=== PATIENT | male | born 1960 | race Caucasian/White ===

== ENCOUNTER 2018-03-27 16:06 | Outpatient (CLI) ==
[2016-05-04 03:16] VITALS: BMI 25.7
== END 2018-03-27 16:07 | disposition home or self-care (01) ==
LOC: RHC-LAB 16:06
PROVIDERS: ATTEND Emergency Medicine
DX: E78.5 Hyperlipidemia, unspecified (principal); G44.029 Chronic cluster headache, not intractable; Z12.5 Encounter for screening for malignant neoplasm of prostate
CPT/HCPCS: 36415; 80053; 80061; 84443; 85025; 85651

== ENCOUNTER 2018-08-15 11:34 | Emergency (ER) ==
[2018-08-15 11:36] VITALS: BP 144/97; TEMP 97; BMI 26.0
--- NOTE | 2018-08-15 11:57 | ED.PDOC ---
General ED Provider: Dr. JEANNA LEONARDO Chief Complaint: Abdominal Pain Stated Complaint: Rt Lower abdomial pain and rt inguinal pain;States I feel a bulging area above inguinal region.PCP eval in office and referred to ER for evaluation. Time Seen by Physician: 11:45 Mode of Arrival: Walk-In Information Source: Patient Exam Limitations: No limitations Primary Care Provider: HUSEYIN TLYER Referred to ED by: PCP Seen Within Last 72 Hours for Same Complaint By: ED Nursing and Triage Documentation Reviewed and Agree: Yes Does patient meet sepsis criteria?: No System Inflammatory Response Syndrome: Not Applicable Sepsis Protocol: For patient's 13 years and over: Temp is 96.8 and below OR 101 and greater Pulse >90 BPM Resp >20/minute Acutely Altered Mental Status Are patient's symptoms suggestive of a new infection, such as: -Pneumonia -Skin, Soft Tissue -Endocarditis -UTI -Bone, Joint Infection -Implantable Device -Acute Abdominal Infection -Wound Infection -Meningitis -Blood Stream Catheter Infection -Unknown GI Complaint Exam - Abdominal Pain Complaint/Exam Onset: Gradual Duration: 2 days Symptoms Are: Still present Timing: Constant Initial Severity: Moderate Current Severity: Moderate Location of Pain: RLQ Radiates To: Reports: RLQ Character: Reports: Dull, Aching, Cramping Aggravating: Reports: Movement Alleviating: Reports: Rest Associated Signs and Symptoms: Reports: Nausea Related History: Denies: Similar episode AAA Risk Factors: Reports: None Cardiac Risk Factors: Reports: None Testicular Torsion Risk Factors: Reports: None Surgical Obstruction Risk Factors: Reports: None Related Surgical History: Reports: None Abdominal Findings: Present: None Genitalia Exam: Present: Normal findings Differential Diagnoses: Appendicitis, Other (hernia) Review of Systems - Review Of Systems Constitutional: Reports: No symptoms Eyes: Reports: No symptoms Ears, Nose, Mouth, Throat: Reports: No symptoms Respiratory: Reports: No symptoms Cardiac: Reports: No symptoms GI: Reports: Abdominal pain, Nausea : Reports: No symptoms Musculoskeletal: Reports: No symptoms Skin: Reports: No symptoms Neurological: Reports: No symptoms Endocrine: Reports: No symptoms Hematologic/Lymphatic: Reports: No symptoms All Other Systems: Reviewed and Negative Past Medical History - Past Medical History Previously Healthy: Yes Endocrine: Reports: None Cardiovascular: Reports: Hypertension Respiratory: Reports: None Hematological: Reports: None Gastrointestinal: Reports: None Genitourinary: Reports: None Neuro/Psych: Reports: Other (cluster headache) Musculoskeletal: Reports: None Cancer: Reports: None - Surgical History General Surgical History: Reports: Unknown - Family History Family History: Reports: Unknown - Social History Smoking Status: Current every day smoker, Heavy tobacco smoker Hx Substance Use: No Alcohol Screening: None - Immunizations Tetanus Shot up to Date: No Physical Exam - Physical Exam Appearance: Well-appearing, No pain distress, Well-nourished Pain Distress: Mild Eyes: TIMMY, EOMI, Conjunctiva clear ENT: Ears normal, Nose normal, Oropharynx normal Respiratory: Airway patent, Breath sounds clear, Breath sounds equal, Respirations nonlabored Cardiovascular: RRR, Pulses normal, No rub, No murmur GI/: Soft, Nontender, No masses, Bowel sounds normal, No Organomegaly Musculoskeletal: Normal strength, ROM intact, No edema, No calf tenderness Skin: Warm, Dry, Normal color Neurological: Sensation intact, Motor intact, Reflexes intact, Cranial nerves intact, Alert, Oriented Psychiatric: Affect appropriate, Mood appropriate Interpretation - Radiology Interpretation Exam Interpreted: CT Scan Xray Comments: No acute abnormalites. NOdular ground glass in Lt lung base Re-Evaluation - Re-Evaluation Time of Re-Evaluation: 13:00 Status: Improved Vital Signs Stable: Yes Appearance: NAD Lungs: Clear Skin: Warm and Dry Neuro: Alert and Oriented X3 CV: RRR Critical Care Note - Critical Care Note Total Time (mins): 0 Course - Course Hematology/Chemistry: 08/15/18 12:30 08/15/18 12:30 Orders, Labs, Meds: Lab Review 08/15/18 08/15/18 12:30 12:30 WBC 10.67 H RBC 5.05 Hgb 15.5 Hct 46.0 MCV 91.1 MCH 30.7 MCHC 33.7 RDW Coeff of [place] 12.6 Plt Count 243 Immature Gran % (Auto) 1.0 Neut % (Auto) 54.2 Lymph % (Auto) 29.9 [place] % (Auto) 7.9 Eos % (Auto) 5.9 Baso % (Auto) 1.1 Immature Gran # (Auto) 0.1 Neut # (Auto) 5.8 Lymph # (Auto) 3.2 [place] # (Auto) 0.8 Eos # (Auto) 0.6 Baso # (Auto) 0.1 Sodium 141.2 Potassium 4.06 Chloride 105.8 Carbon Dioxide 31.2 H Anion Gap 8.26 BUN 7.7 L Creatinine 0.85 Estimated GFR (MDRD) 93.00 BUN/Creatinine Ratio 9.05 Glucose 87.7 Calcium 9.63 Total Bilirubin 0.33 AST 26.5 ALT 32.6 Alkaline Phosphatase 76.4 Total Protein 6.46 Albumin 3.77 Globulin 2.69 Albumin/Globulin Ratio 1.40 Orders Category Date Time Status CBC W/ AUTO DIFF Stat LAB 08/15/18 12:30 Completed CMP [COMPREHENSIVE METABOLIC PANEL] Stat LAB 08/15/18 12:30 Completed UA [URINALYSIS C & S IF INDICATED] Stat LAB 08/15/18 12:01 Uncollected Ondansetron [Zofran Odt] MEDS 08/15/18 12:03 Discontinued 4 mg PO ONCE STA CT ABDOMEN/PELVIS WO CONTRAST Stat RADS 08/15/18 12:01 Completed Medications Discontinued Medications Generic Name Dose Route Start Last Admin Trade Name Freq PRN Reason Stop Dose Admin Ondansetron HCl 4 mg 08/15/18 12:03 08/15/18 12:21 Zofran Odt PO 08/15/18 12:04 4 mg ONCE STA Administration Vital Signs: Temp Pulse Resp BP Pulse Ox 08/15/18 11:34 97.0 F L 80 18 144/97 H 95 Departure - Departure Time of Disposition: 13:30 Disposition: HOME SELF-CARE Discharge Problem: Abdominal pain, Right nephrolithiasis Instructions: Abdominal Pain (ED), Kidney Stones (ED) Condition: Good Pt referred to PMD for follow-up: Yes IPMP verified?: No Additional Instructions: See PCP in 1 week Make sure follow up CT chest in 3 mo to follow up on lt lung problem Allergies/Adverse Reactions: Allergies codeine Allergy (Severe, Unverified 08/15/18 11:36) chest hurts Narcotic pain meds Adverse Reaction (Uncoded 08/15/18 11:36) PT STATES ALL NARCOTICS GIVE HIM A TIGHTNESS AND PAIN ACROSS THE CHEST, ONLY DEMEROL DOES NOT CAUSE THE PAIN/TIGHTNESS Home Medications: Ambulatory Orders 1 [No Reported Medications] 08/15/18 Disposition Discussed With: Patient
[2018-08-15] MEDS ORDERED: ZOFRAN ODT PO STA (12:03)
--- NOTE | 2018-08-15 12:39 | CT ---
Exam: CT of the abdomen pelvis without intravenous contrast. Comparison: 11/12/2015. Reason for exam: Right lower quadrant abdominal pain. FINDINGS: There is bibasilar atelectasis. Nodular ground-glass is seen in the left anterior lung ba se on axial image number 12 measuring approximately 8 mm. The liver is lower in attenuation in the spleen. The gallbladder has been removed. 3 mm stone is seen in the right renal parenchymal collecting system on axial image number 71 without hydronephrosis or ureterolithiasis. 3 mm stone is seen in the left renal parenchyma, collecting system on axial image number 24 without h ydronephrosis or ureterolithiasis. No focal small bowel dilatation or transition point. The appendix appears unremarkable. The adrenal glands, pancreas, and spleen appear grossly unremarkable within limitations of a noncontr asted study. No intra-abdominal free air or pelvic free fluid. Small only fat containing periumbilical hernia. The bladder appears grossly unremarkable. Moderate amount of retained food products seen within the stomach. No suspicious appearing osteoblastic or osteolytic lesions. Impression: 1. Nodular ground-glass in the left anterior lung base. Recommend 6-month follow-up imaging to docu ment resolution. 2. Hepatic steatosis. 3. No acute inflammatory findings are seen within the abdomen or pelvis. 4. Bilateral nonobstructive nephrolithiasis.
== END 2018-08-15 13:43 | disposition home or self-care (01) ==
LOC: ED 11:34
DX: R10.31 Right lower quadrant pain (principal); N20.0 Calculus of kidney
CPT/HCPCS: 36415; 80053; 81001; 85025; 99283

== ENCOUNTER 2018-08-15 22:24 | Emergency (ER) ==
[2018-08-15 22:32] VITALS: BP 144/94; TEMP 98.6; BMI 26.2
[2018-08-15] MEDS ORDERED: MORPHINE 2 MG/ML SYRINGE IVP STA (22:46)
[2018-08-15] MEDS ORDERED: ZOFRAN 4 MG/2 ML IVP STA (22:46)
[2018-08-15] MEDS ORDERED: SODIUM CHLORIDE 1,000 ML IV STA (22:46)
--- NOTE | 2018-08-16 00:14 | CT ---
Exam: CT of the abdomen and pelvis without and with contrast History: Right lower quadrant pain Technique: 3 mm pre and postcontrast CT of the abdomen and pelvis FINDINGS: Minor lung base atelectasis. No significant liver abnormality. The adrenals, pancreas and spleen are unremarkable. The stomach and hiatus are unremarkable.Prior cholecystectomy. Punctate nono bstructing calculus in both kidneys. Otherwise, kidneys and proximal collecting system are unremarka ble. Atherosclerotic calcification of the aorta without aneurysm or dissection. The appendix is norm al. Bowel loops demonstrate normal caliber. No inflamatory change seen in the mesentery or retroperit oneum. Pelvic genitourinary structures appear normal. Pelvic bowel loops are unremarkable. No inflammatory c hange in the pelvic fat. No acute abnormality of the abdominal or pelvic skeleton. Impression: 1. No inflammatory process, bowel or urinary obstruction is seen. 2. Bilateral nonobstructing nephrolithiasis
--- NOTE | 2018-08-16 00:34 | ED.PDOC ---
General ED Provider: Dr. JEANNA MURPHY-ER Chief Complaint: Kidney Stone Stated Complaint: lico been hurting Time Seen by Physician: 22:30 Mode of Arrival: Walk-In Information Source: Patient Exam Limitations: No limitations Primary Care Provider: BOWEN OCHOA Nursing and Triage Documentation Reviewed and Agree: Yes Does patient meet sepsis criteria?: No System Inflammatory Response Syndrome: Not Applicable Sepsis Protocol: For patient's 13 years and over: Temp is 96.8 and below OR 101 and greater Pulse >90 BPM Resp >20/minute Acutely Altered Mental Status Are patient's symptoms suggestive of a new infection, such as: -Pneumonia -Skin, Soft Tissue -Endocarditis -UTI -Bone, Joint Infection -Implantable Device -Acute Abdominal Infection -Wound Infection -Meningitis -Blood Stream Catheter Infection -Unknown GI Complaint Exam - Abdominal Pain Complaint/Exam Onset: Gradual Duration: several hours Symptoms Are: Still present Timing: Constant Initial Severity: Mild Current Severity: Moderate Location of Pain: Discrete, RLQ Character: Reports: Dull, Aching Aggravating: Reports: None Associated Signs and Symptoms: Denies: Diaphoresis, Fever, Cough, Chest pain, Dizziness, Back pain, Constipation, Blood in stool, Dysuria, Urinary frequency, Decreased urine output, Decreased appetite, Discharge, Nausea, Vomiting, Diarrhea, Decreased activity Review of Systems - Review Of Systems Constitutional: Reports: No symptoms Eyes: Reports: No symptoms Ears, Nose, Mouth, Throat: Reports: No symptoms Respiratory: Reports: No symptoms Cardiac: Reports: No symptoms GI: Reports: Abdominal pain : Reports: No symptoms Musculoskeletal: Reports: Joint pain Skin: Reports: No symptoms Neurological: Reports: No symptoms Endocrine: Reports: No symptoms Hematologic/Lymphatic: Reports: No symptoms All Other Systems: Reviewed and Negative Past Medical History - Past Medical History Previously Healthy: Yes Endocrine: Reports: None Cardiovascular: Reports: Hypertension Respiratory: Reports: None Hematological: Reports: None Gastrointestinal: Reports: None Genitourinary: Reports: None Neuro/Psych: Reports: Other (cluster headache) Musculoskeletal: Reports: None Cancer: Reports: None - Surgical History General Surgical History: Reports: Unknown - Family History Family History: Reports: Unknown - Social History Smoking Status: Current every day smoker, Heavy tobacco smoker Hx Substance Use: No Alcohol Screening: None - Immunizations Tetanus Shot up to Date: Yes Physical Exam - Physical Exam Appearance: Well-appearing, No pain distress, Well-nourished Pain Distress: Mild Eyes: TIMMY, EOMI, Conjunctiva clear ENT: Ears normal, Nose normal, Oropharynx normal Neck: Supple Respiratory: Airway patent, Breath sounds clear, Breath sounds equal, Respirations nonlabored Cardiovascular: RRR, Pulses normal, No rub, No murmur GI/: Soft, Nontender, No masses, Bowel sounds normal, No Organomegaly Musculoskeletal: Normal strength, ROM intact, No edema, No calf tenderness Skin: Warm, Dry, Normal color Neurological: Sensation intact, Motor intact, Reflexes intact, Cranial nerves intact, Alert, Oriented Psychiatric: Affect appropriate, Mood appropriate Interpretation - Radiology Interpretation Radiology Interpretation By: Radiologist Radiology Results: Negative Exam Interpreted: CT Scan Re-Evaluation - Re-Evaluation Time of Re-Evaluation: 00:33 Status: Improved (sleeping in exam room) Vital Signs Stable: Yes Pain Level: 0 Appearance: NAD Lungs: Clear Skin: Warm and Dry Neuro: Alert and Oriented X3 CV: RRR Critical Care Note - Critical Care Note Total Time (mins): 0 Course - Course Hematology/Chemistry: 08/15/18 22:53 08/15/18 22:53 Orders, Labs, Meds: Lab Review 08/15/18 08/15/18 08/15/18 22:53 22:53 23:55 WBC 11.05 H RBC 4.71 Hgb 14.6 Hct 43.2 MCV 91.7 MCH 31.0 MCHC 33.8 RDW Coeff of [place] 12.6 Plt Count 218 Immature Gran % (Auto) 0.8 Neut % (Auto) 57.3 Lymph % (Auto) 26.6 [place] % (Auto) 8.5 Eos % (Auto) 5.8 Baso % (Auto) 1.0 Immature Gran # (Auto) 0.1 Neut # (Auto) 6.3 Lymph # (Auto) 2.9 [place] # (Auto) 0.9 Eos # (Auto) 0.6 Baso # (Auto) 0.1 ESR 9 Sodium 138.8 Potassium 4.08 Chloride 105.8 Carbon Dioxide 31.0 H Anion Gap 6.08 BUN 9.4 Creatinine 0.86 Estimated GFR (MDRD) 91.00 BUN/Creatinine Ratio 10.93 Glucose 97.8 Calcium 9.18 Total Bilirubin 0.25 AST 30.1 ALT 28.3 Alkaline Phosphatase 63.8 Total Protein 5.84 L Albumin 3.34 L Globulin 2.50 Albumin/Globulin Ratio 1.33 Amylase 48.4 Lipase 87.2 Urine Color Yellow Urine Clarity Clear Urine pH 7.0 Ur Specific [place] 1.015 Urine Protein Negative Urine Glucose (UA) Negative Urine Ketones Negative Urine Blood Negative Urine Nitrite Negative Urine Bilirubin Negative Urine Urobilinogen 0.2 Ur Leukocyte Esterase Negative Orders Category Date Time Status NPO REMINDER: IMAGING ONCE CARE 08/15/18 22:46 Completed IV [ED IV/MEDIPORT/POWERPORT] .ONCE EMERGENCY 08/15/18 22:45 Active AMYLASE Stat LAB 08/15/18 22:53 Completed CBC W/ AUTO DIFF Stat LAB 08/15/18 22:53 Completed COMPREHENSIVE METABOLIC PANEL Stat LAB 08/15/18 22:53 Completed ESR Stat LAB 08/15/18 22:53 Completed LIPASE Stat LAB 08/15/18 22:53 Completed URINALYSIS C & S IF INDICATED Stat LAB 08/15/18 23:55 Completed 0.9 % Sodium Chloride [Saline Flush] MEDS 08/15/18 22:45 Ordered 1 syr IVF PRN PRN Morphine Sulfate [Morphine 2 mg/ml Syringe] MEDS 08/15/18 22:46 Discontinued 2 mg IVP ONCE STA Ondansetron HCl/Pf [Zofran 4 mg/2 ml] MEDS 08/15/18 22:46 Discontinued 4 mg IVP ONCE STA Sodium Chloride 0.9% [Sodium Chloride] 1,000 ml MEDS 08/15/18 22:46 Active IV 100 mls/hr CT ABDOMEN/PELVIS W/WO CONTRAS Stat RADS 08/15/18 22:45 Completed Medications Generic Name Dose Route Start Last Admin Trade Name Freq PRN Reason Stop Dose Admin Sodium Chloride 1,000 mls @ 100 mls/hr 08/15/18 22:46 08/15/18 23:09 Sodium Chloride IV 08/16/18 08:45 100 mls/hr .Q10H STA Administration Sodium Chloride 1 syr 08/15/18 22:45 08/15/18 23:15 Saline Flush IVF 1 syr PRN PRN Administration To flush IV Discontinued Medications Generic Name Dose Route Start Last Admin Trade Name Freq PRN Reason Stop Dose Admin Morphine Sulfate 2 mg 08/15/18 22:46 08/15/18 23:10 Morphine 2 Mg/Ml Syringe IVP 08/15/18 22:47 2 mg ONCE STA Administration Ondansetron HCl 4 mg 08/15/18 22:46 08/15/18 23:10 Zofran 4 Mg/2 Ml IVP 08/15/18 22:47 4 mg ONCE STA Administration Vital Signs: Temp Pulse Resp BP Pulse Ox 08/15/18 22:27 98.6 F 73 20 144/94 H 97 Departure - Departure Time of Disposition: 00:33 Disposition: HOME SELF-CARE Discharge Problem: Hip pain, right Abdominal pain Qualifiers: Abdominal location: right lower quadrant Qualified Code(s): R10.31 - Right lower quadrant pain Instructions: Hip Pain (ED) Condition: Good Pt referred to PMD for follow-up: Yes IPMP verified?: No Additional Instructions: norco 5mg q 6hrs prn pain #10--f/u with bowen ochoa--consider mri of the hip Allergies/Adverse Reactions: Allergies codeine Allergy (Severe, Verified 08/15/18 22:32) chest hurts tightness/chest pain Home Medications: Ambulatory Orders 1 [No Reported Medications] 08/15/18 Disposition Discussed With: Patient, Family
== END 2018-08-16 00:43 | disposition home or self-care (01) ==
LOC: ED 22:24
DX: N20.0 Calculus of kidney (principal); R10.31 Right lower quadrant pain; M25.551 Pain in right hip
CPT/HCPCS: 36415; 80053; 81001; 82150; 83690; 85025; 85651; 96361; 96374; 96375; 99283

== ENCOUNTER 2018-08-19 10:29 | Outpatient (CLI) | END 2018-08-19 10:30 | disposition home or self-care (01) | LOC: RHC-LAB 10:29 | PROVIDERS: ATTEND Nurse Practitioner Family | DX: G90.521 Complex regional pain syndrome I of right lower limb (principal) | CPT/HCPCS: 36415; 86038; 86430 ==